=== PATIENT | male | born 2000 | race Asian ===

== ENCOUNTER 2018-08-30 17:56 | Emergency (ER) | payer OTHER | END 2018-08-30 19:06 | disposition home or self-care (01) | LOC: FTE 17:56 | DX: S80.212A Abrasion, left knee, initial encounter (principal); S50.311A Abrasion of right elbow, initial encounter; R40.2412 Glasgow coma scale score 13-15, at arrival to emergency department; W01.0XXA Fall on same level from slipping, tripping and stumbling without subsequent striking against object, initial encounter; Y92.9 Unspecified place or not applicable | CPT/HCPCS: 99282; Z7502 ==